=== PATIENT | male | born 1995 | race Caucasian/White ===

== ENCOUNTER 2019-06-23 13:01 | Observation (INO) | payer SELFPAY ==
[~2019-06-23 13:01] MED LIST: Iopamidol-370 76% 500 ML 1 ML ONE
[2019-06-23] MEDS ORDERED: Fentanyl 100 MCG/2 ML VIAL ONE (13:07)
--- NOTE | 2019-06-23 14:27 | RAD ---
2 VIEWS RIGHT HIP: Date: 06/23/2019 COMPARISON: None. HISTORY: Injury, trauma, pain. FINDINGS: There is abnormal widening of the pubic symphysis suggesting traumatic diastasis. No fracture or disl ocation is seen in the region of the right hip. IMPRESSION: Widening of the pubic symphysis consistent with traumatic diastasis. POS: [facility]
[2019-06-23 14:36] LABS: Hemoglobin 15.8 g/dL (14.0-18.0); Mean Corpuscular HGB CONC 36.6 g/dL (32.0-36.0); Mean Corpuscular Hemoglobin 31.5 pg (27.0-31.0); Mean Corpuscular Volume 86.1 fL (78.0-98.0); Mean Platelet Volume 7.7 fL (7.4-10.4); Platelet Count 237 thou/uL (130-400); RBC Distribution Width 11.2 % (11.5-14.5); Red Blood Cell (RBC) Count 5.01 mill/uL (4.70-6.10); White Blood Cell (WBC) Count 26.2 thou/uL (4.8-10.8)
--- NOTE | 2019-06-23 14:38 | CT ---
CT CHEST AND ABDOMEN AND PELVIS AND THORACIC SPINE AND LUMBAR SPINE: Date: 06/23/2019 COMPARISON: None. HISTORY: Trauma, pain, horse fell on top of patient. TECHNIQUE: Axial CT imaging at 5 mm intervals from the thoracic inlet through the pubic symphysis with IV contra st. Coronal and sagittal 3D reformatted imaging obtained. FINDINGS: There is no axillary, mediastinal, or hilar lymphadenopathy. Mild increased density is noted within t he anterior superior mediastinal fat suggesting residual thymic tissue. There is no pleural, pericardial, or mediastinal fluid. No pneumothorax. No endobronchial lesion. Extraspinal osseous structures of the chest appear grossly unremarkable. No free intraperitoneal air or fluid. The liver, gallbladder, spleen, pancreas, adrenal glands, and kidneys appear unremarkable. Limited assessment of the bowel demonstrates no evidence for bowel inflammatory change or obstruction . Appendix is visualized and is within normal limits. The vascular structures of the abdomen/pelvis a ppear patent. No abdominal or pelvic lymphadenopathy is noted. Osseous structures of the abdomen/pelvis demonstrate no widening of the sacroiliac joints. However, t here does appear to be mild widening of the pubic symphysis. There is a comminuted and mildly displac ed inferior pubic ramus fracture on the left. The inferior pubic ramus on the right appears unremarka ble. Neither hip appears dislocated. There is stranding of the fat inferior to the urinary bladder and there is small volume hemorrhage to the right of midline within the lower pelvis anteriorly, just inferior to the right acetabulum. The sternum and manubrium appear intact on the sagittal reformatted imaging. No acute fracture or evidence of dislocation is evident within the thoracic spine. No acute fracture or dislocation is seen involving the lumbar spine. Bilateral pars defects are noted at the L3 level with no associated anterolisthesis. IMPRESSION: Acute fracture of inferior pubic ramus on the left with traumatic mild widening of the pubic symphysi s and small volume associated hemorrhage within the right hemipelvis. Additional incidental findings as detailed above. Results called to Dr. Martinez at 1345 hours on 06/23/2019. CODE CR.
[2019-06-23] MEDS ORDERED: Ondansetron PF 4 MG/2 ML Vial ONE (14:53)
[2019-06-23] MEDS ORDERED: Morphine 4 MG/ML VIAL ONE (14:53)
[2019-06-23] MEDS ORDERED: Ketorolac Tromethamine 30 MG/ML VIAL ONE (14:53)
[2019-06-23 14:57] LABS: Band 24 % (5-11); Eosinophils 1 % (0-10); Lymphocytes 10 % (21-51); MDiff Complete? YES; Metamyelocyte 1 % (0-0); Monocytes 6 % (0-10); Neutrophil 56 % (42-75); Platelet Morphology Comment Appears Adequate; Polychromasia SLIGHT = 2-3 cells (100X) (0-2/hpf); Reactive Lymphocytes 2 % (0-10)
[2019-06-23 14:58] LABS: ALT (SGPT) 34 U/L (8-55); AST (SGOT) 29 U/L (5-34); Albumin 4.6 g/dL (3.5-5.0); Alkaline Phosphatase 64 U/L (40-110); Anion Gap 11 mmol/L (10-20); BUN (Urea Nitrogen) 17 mg/dL (8.9-20.6); Bilirubin, Total 0.6 mg/dL (0.2-1.2); Calc. Creatinine Clearance 0 mL/min (70-130); Calcium 9.6 mg/dL (7.8-10.44); Carbon Dioxide 23 mmol/L (22-29); Chloride 107 mmol/L (98-107); Estimated GFR-MDRD 81; Globulin 3.1 g/dL (2.4-3.5); Glucose 106 mg/dL (70-105); Potassium 3.4 mmol/L (3.5-5.1); Protein, Total 7.7 g/dL (6.0-8.3); Sodium 138 mmol/L (136-145)
[2019-06-23] MEDS ORDERED: Dextrose 50% Abboject 50 ML SYRINGE SLOW IVP PRN (15:40)
[2019-06-23] MEDS ORDERED: Ondansetron ODT 4 MG TAB PO PRN (15:40)
[2019-06-23] MEDS ORDERED: Ondansetron PF 4 MG/2 ML Vial IVP PRN (15:40)
[2019-06-23] MEDS ORDERED: Morphine 2 MG/ML SYRINGE SLOW IVP PRN (15:40)
[2019-06-23] MEDS ORDERED: Dextrose 5% in Water 1,000 ML IV PRN (15:40)
[2019-06-23] MEDS ORDERED: hydrALAZINE 20 MG/ML VIAL SLOW IVP PRN (15:40)
[2019-06-23] MEDS ORDERED: traMADol HCl 50 MG TAB PO PRN (15:43)
[2019-06-23] MEDS ORDERED: Cyclobenzaprine 10 MG TAB PO PRN (15:44)
[2019-06-23 15:58] LABS: CK (CPK) 315 U/L (30-200); Magnesium 1.5 mg/dL (1.6-2.6)
[2019-06-23] MEDS ORDERED: Acetaminophen 500 MG TAB PO SCH (16:00)
[2019-06-23] MEDS ORDERED: traMADol HCl 50 MG TAB PO SCH (16:00)
[2019-06-23 16:01] LABS: Phosphorus 1.1 mg/dL (2.3-4.7)
[2019-06-23] MEDS ORDERED: Potassium Phosphate 30 MMOL in Sodium Chloride 0.9% 500 ML IVPB SCH (17:00)
[2019-06-23] MEDS ORDERED: Magnesium 2 GM/50 ML 2 GM in Premix Bag 1 BAG IVPB SCH (17:15)
--- NOTE | 2019-06-23 17:20 | HP ---
This is Tere Pascal NP dictating a report for Nikki Tamayo MD. REQUESTING: Dr. Martinez. CONSULT: Orthopedic Surgery, Dr. Aviles. CHIEF COMPLAINT: Level 2 trauma activation, crushed by horse. HISTORY OF PRESENT ILLNESS: This is a 23-year-old gentleman who arrived to the emergency room via EMS after he was riding his horse, horse reared up, fell backwards, landing on top of him. The patient denied hitting his head or losing consciousness. The patient immediately reported pain to left hip. The patient was not able to ambulate after the injury. The patient's vital signs have been stable. The patient's pain has been controlled with morphine, Toradol, and fentanyl in the emergency room. Trauma Service was asked to admit the patient for evaluation and pain control for his left inferior pubic ramus fracture with widened pubic symphysis. The patient is currently awake, alert, in no distress at this time. The patient is currently eating a regular diet. The patient denies any recent illness, chest pain, shortness of breath, cough, fever, or chills. The patient states that he does not see a doctor regularly. REVIEW OF SYSTEMS: A 10-point review of systems is negative. ALLERGIES: NO KNOWN DRUG ALLERGIES. MEDICATIONS: Denies. PAST MEDICAL HISTORY: Denies. FAMILY HISTORY: Denies. SURGICAL HISTORY: 1. Cyst removal from the left side of face. 2. [place] teeth removal. SOCIAL HISTORY: The patient is a pipeline worker. The patient denies a history of smoking, denies illicit drug use, reports very occasional alcohol use. OBJECTIVE: VITAL SIGNS: Blood pressure 129/97, pulse 100, respirations 20, temperature 97.8, and SpO2 of 100% on room air. GENERAL: Well-appearing young male, pleasant, in no acute distress. HEENT: Head is atraumatic and normocephalic, midface stable, mucous membranes are moist, normal range of motion of neck, no posterior cervical tenderness. Trachea midline. PULMONARY: Equal chest rise and fall. No obvious chest deformity. Bilateral breath sounds clear. No wheezing, rales, or rhonchi. CARDIAC: Regular rate and regular rhythm. No murmurs. No pedal edema. ABDOMEN: Soft, nontender, and nondistended. Active bowel sounds. No peritoneal signs. EXTREMITIES: Moves all extremities. Tenderness to left hip. Distal pulses 2+. Sensation intact. NEUROLOGIC: GCS 15. No focal deficits. LABORATORY DATA: WBC 26.2, RBC 5.01, hemoglobin 15.8, hematocrit 43.1, and platelets 237. Sodium 138, potassium 3.4, chloride 107, carbon dioxide 23, BUN 17, creatinine 1.11, estimated GFR 81, glucose 106, and calcium 9.6. Phosphorus 1.1. Magnesium 1.5. Total bilirubin 0.6, AST 29, ALT 34, alkaline phosphatase 64. CK 315. Serum total protein 7.7 and albumin 4.6. DIAGNOSTIC DATA: Chest, abdomen, and pelvis CT: There is no axillary, mediastinal, or hilar lymphadenopathy. Mild increased density noted within the anterior posterior mediastinal fat, suggesting residual thymic tissue. No pleural, pericardial, or mediastinal fluid. No pneumothorax. No endobronchial lesion. Extra-spinal osseous structures of the chest appear grossly unremarkable. No free intraperitoneal air or fluid. No acute fracture evidence or dislocation of the thoracic spine. Sternum and manubrium appear intact. Bilateral pars defects are noted at L3 level with no associated anterolisthesis. Acute fracture of the inferior pubic ramus on the left with traumatic mild widening of the pubic symphysis and small volume of associated hemorrhage within the right hemipelvis. Hip x-ray, impression: Widening of the symphysis correction of the pubic symphysis consistent with traumatic diastasis. No fracture or dislocation is seen in the region of the right hip. IMPRESSION: 1. Status post crush by horse. 2. Left inferior pubic ramus fracture with traumatic mild widening of the pubic symphysis. 3. Small volume associated hemorrhage within the right hemipelvis. 4. Acute traumatic pain. 5. Hypokalemia. PLAN: Admit the patient to the surgical floor for observation and pain control. Regular diet as tolerated. We will correct electrolytes. Waiting on evaluation by Orthopedic Surgery, Dr. Aviles. The patient will be nonweightbearing until evaluation. Aggressive pulmonary toilet. SCDs for VTE prophylaxis at this time. The plan was discussed with the attending who agrees. Job ID: [id number]
[2019-06-23 17:29] VITALS: BMI 28.3
[2019-06-23] MEDS: traMADol HCl 50 MG TAB PO SCH (18:17)
[2019-06-23] MEDS: Acetaminophen 500 MG TAB PO SCH (18:17)
--- NOTE | 2019-06-23 19:11 | CON ---
DATE OF CONSULTATION: 06/23/2019 REASON FOR CONSULTATION: Pelvic fracture. CHIEF COMPLAINT: Pelvic pain and back pain. CONSULTING PHYSICIAN: Dr. Martinez, ER staff. HISTORY OF PRESENT ILLNESS: Mr. Mills is a pleasant 23-year-old male who presented to the emergency department after having a horse fall onto him. The patient was seen and evaluated in the emergency department. The patient states that he was riding a horse when the horse reared up, falling directly onto his back, and the horse on top of him. He had immediate pelvic and low back pain. He was transferred to the emergency department. In the emergency department, evaluation and imaging demonstrated a pubic symphysis widening and inferior pubic rami fracture. Orthopedics was consulted secondary to fracture. ALLERGIES: NONE. MEDICATIONS: None. PAST MEDICAL HISTORY: None. PAST SURGICAL HISTORY: None. SOCIAL HISTORY: Denies smoking. Drinks alcohol occasionally. Denies any illicit drug use. He currently works in [place], mainly driving a backhoe. FAMILY HISTORY: Noncontributory. REVIEW OF SYSTEMS: Complete 10-system review is negative with the exception of right hip pain and low back pain. PHYSICAL EXAMINATION: GENERAL: Alert and oriented x3, in no acute distress. HEENT: Nontraumatic and normocephalic. RESPIRATORY: Nonlabored. CARDIOVASCULAR: Regular rate. ABDOMEN: Soft, nondistended, and nontender. MUSCULOSKELETAL: Evaluation of the pelvis demonstrates no swelling, open wounds, lacerations, or abrasions. No ecchymosis noted. He is tender to palpation about the right hip region. Evaluation of the right lower extremity demonstrates no tenderness on palpation along the right knee, ankle, or foot. He has mild groin pain on log rolling of the right hip. He has some low back pain as well. He does have a small abrasion on the anterior tib-fib region, appears to be remote. Evaluation of the left lower extremity demonstrates no tenderness to palpation or pain on passive range of motion of left hip, knee, ankle, or foot. He has positive FHL/EHL/peroneal muscle activation of bilateral lower extremities. Evaluation of bilateral upper extremities demonstrates no tenderness to palpation or pain on passive range of motion of bilateral shoulders, elbows, wrists, or hands. Positive FPL/EPL/intrinsic muscle activation of bilateral upper extremities. NEUROVASCULAR: Sensation intact to light touch in L4 through S1 dermatomes in bilateral lower extremity and radial, ulnar, and median nerve distribution of bilateral upper extremities. IMAGING STUDIES: X-rays of the right hip demonstrates some mild widening of the pubic symphysis, less of approximately 1.[address] of the abdomen and pelvis demonstrates some hemorrhage around the right pelvis with inferior pubic rami fracture of the right inferior pubic ramus. There is mild widening of the pubic symphysis. No SI widening noted. ASSESSMENT AND PLAN: A 23-year-old male with an APC-1 pelvis fracture and minimal widening of the pubic symphysis. His widening is less than 2.5 cm. We will plan for conservative treatment without any surgical intervention at this point in time. We will admit him to the hospital for pain control and to evaluate for pelvic bleeding. If he is doing well tomorrow, then likely be discharged home. We will obtain a standing AP pelvis film to assess true stability of his pelvis tomorrow morning. We will see him in clinic in 2 weeks' time for repeat imaging. Job ID: [id number]
[2019-06-23] MEDS: Gabapentin 300 MG CAP PO SCH (21:02)
[2019-06-23] MEDS: Ibuprofen 600 MG TAB PO SCH (21:02)
--- NOTE | 2019-06-23 21:25 | PRG ---
DATE OF SERVICE: 06/23/2019 SUBJECTIVE: The patient was seen this evening during rounds. He was lying in bed and comfortable with no signs of acute distress. He reported his pain was better controlled. He is tolerating his diet. He is voiding without difficulty. Urine as reported as yellow. OBJECTIVE: VITAL SIGNS: Temperature 99.4, pulse 110, respirations 12, oxygen saturation 98% on room air, and blood pressure 122/72. GENERAL: Well-appearing young male, lying in bed supine with no signs of acute distress. PULMONARY: Equal chest rise and fall. No signs of acute respiratory distress. ASSESSMENT: 1. Status post crush by horse. 2. Left inferior pubic rami fracture with associated pelvic hematoma. 3. Acute hypokalemia, hypophosphatemia, and hypomagnesemia. PLAN: Continue current regular diet and pain management. Continue physical and occupational therapy. The patient has received electrolyte replacement. We will repeat blood work in the morning. Closely monitor vital signs as patient had a small volume hemorrhage after his pelvic fracture. If there is concern for bleeding, we will repeat blood work earlier than tomorrow morning. Per Dr. Aviles, the patient is to receive a repeat x-ray of the pelvis tomorrow morning. Job ID: [id number]
[2019-06-24] MEDS: Acetaminophen 500 MG TAB PO SCH ×3 (00:03→11:35)
[2019-06-24] MEDS: traMADol HCl 50 MG TAB PO SCH ×3 (00:03→11:35)
--- NOTE | 2019-06-24 04:22 | HP ---
ADDENDUM: This is an addendum to the H and P dictated by Tere Pascal, Trauma Nurse practitioner. For full details, please see her H and P, the details of which I have confirmed. CHIEF COMPLAINT: Pelvic and back pain. HISTORY OF PRESENT ILLNESS: Mr. Mills is a 23-year-old man who was riding his horse when the horse reared up and fell backwards onto him. He had immediate pain in his right hip and back area and was unable to stand or move. He was brought into the emergency room where he was found to have a left inferior pubic ramus fracture with a widened pubic symphysis. Due to inability to ambulate, he was admitted for pain control, although Orthopedics plans to manage this nonoperatively. He has not had any difficulty urinating and denies any hematuria. He has not noticed pain anywhere else, he is most comfortable with his knees rotated externally somewhat. He denies any loss of consciousness or other injuries. PAST MEDICAL HISTORY: None. PAST SURGICAL HISTORY: [place] teeth removal and removal of a BB-sized cyst from his face. ALLERGIES: NO KNOWN DRUG ALLERGIES. OUTPATIENT MEDICATIONS: Ten-system review of systems is negative except per HPI. SOCIAL HISTORY: The patient does not smoke or use illicit drugs. Drinks only rarely. He works in the [employer]. LABORATORY DATA: White count was elevated. Potassium, phosphorus, and magnesium were low. CK mildly elevated. IMAGING STUDIES: CT images were reviewed, and I agree with the written report. He has a left inferior pubic ramus fracture with widening of the pubic symphysis. In addition, the left SI joint posterior looks a little irregular to me, although this is not commented on the formal report. No other acute injuries were noted. PHYSICAL EXAMINATION: Complete physical examination was performed at the bedside. VITAL SIGNS: Normal except for mild tachycardia at 104. GENERAL: Reveals a healthy-appearing man. HEENT: He is normocephalic, atraumatic with no lymphadenopathy or thyroid nodules. NECK: Supple and nontender. HEART: His heart is regular in its rate and rhythm without murmurs, rubs, or gallops. LUNGS: Clear to auscultation bilaterally. ABDOMEN: Soft and nontender without hernias or masses. : No bruising or discoloration of the scrotum or penis. Urine in the bedside urinalysis jug is clear in color. Pelvis was not manipulated due to his known injury. EXTREMITIES: Warm and well perfused without edema. Normal pedal pulses. NEUROLOGIC: Intact. PSYCHIATRIC: Alert, oriented, and appropriate. ASSESSMENT: Pelvic fractures with acute pain due to trauma. He is being admitted, and pain medications and physical therapy have been ordered. His phosphorus and potassium are being replaced, and we will recheck this in the morning. Orthopedics has been consulted as well, but currently, there are no plans for operative intervention. Job ID: [id number]
[2019-06-24] MEDS: Ibuprofen 600 MG TAB PO SCH (05:03)
[2019-06-24 06:02] LABS: Anion Gap 10 mmol/L (10-20); BUN (Urea Nitrogen) 18 mg/dL (8.9-20.6); Calc. Creatinine Clearance 176 mL/min (70-130); Calcium 8.5 mg/dL (7.8-10.44); Carbon Dioxide 27 mmol/L (22-29); Chloride 106 mmol/L (98-107); Estimated GFR-MDRD 90; Glucose 104 mg/dL (70-105); Magnesium 2.1 mg/dL (1.6-2.6); Potassium 3.5 mmol/L (3.5-5.1); Sodium 139 mmol/L (136-145)
[2019-06-24 06:17] LABS: #Basophils 0.1 thou/uL (0.0-0.2); #Eosinphils 0.2 thou/uL (0.0-0.7); #Lymphocytes 2.3 thou/uL (1.20-3.40); #Neutrophils 8.7 thou/uL (1.40-6.50); %Basophils 0.4 % (0.0-1.0); %Eosinophils 1.3 % (0.0-10.0); %Lymphocytes 19.1 % (21.0-51.0); %Monocytes 8.4 % (0.0-10.0); %Neutrophils 70.8 % (42.0-75.0); Hemoglobin 13.4 g/dL (14.0-18.0); Mean Corpuscular HGB CONC 35.2 g/dL (32.0-36.0); Mean Corpuscular Hemoglobin 30.5 pg (27.0-31.0); Mean Corpuscular Volume 86.6 fL (78.0-98.0); Mean Platelet Volume 7.9 fL (7.4-10.4); Platelet Count 188 thou/uL (130-400); RBC Distribution Width 11.3 % (11.5-14.5); Red Blood Cell (RBC) Count 4.39 mill/uL (4.70-6.10); White Blood Cell (WBC) Count 12.2 thou/uL (4.8-10.8)
[2019-06-24] MEDS ORDERED: Polyethylene Glycol 3350 17 GM Packet PO SCH (09:00)
[2019-06-24] MEDS: Gabapentin 300 MG CAP PO SCH (09:06)
--- NOTE | 2019-06-24 10:27 | RAD ---
FRONTAL RADIOGRAPH PELVIS: Date: 06/24/2019 HISTORY: Pelvic fracture. FINDINGS: Mild widening of the pubic symphysis noted. There is a stable fracture involving the inferior pubic r amus on the left. Neither hip appears dislocated. IMPRESSION: Traumatic diastasis of the pubic symphysis with left inferior pubic ramus fracture. POS: [facility]
--- NOTE | 2019-06-24 10:49 | PRG ---
DATE OF SERVICE: 06/24/2019 SUBJECTIVE: The patient was seen and evaluated in the hospital bed. No acute events overnight. Complains of some pelvic pain and tailbone pain. No adverse events overnight. OBJECTIVE: VITAL SIGNS: Stable. The patient is afebrile. MUSCULOSKELETAL: Evaluation of bilateral lower extremities demonstrates no tenderness to palpation or pain on passive range of motion of bilateral feet, ankle, or knees. He has minor tenderness of the right groin region with log rolling of the right leg. Normal exam of left lower extremity. Secondary survey of bilateral upper extremities demonstrates no tenderness to palpation or pain on passive range of motion of bilateral shoulders, elbows, wrists, or hands. _Neurovascularly_ intact throughout. IMAGING: New AP pelvis standing reviewed this morning demonstrates stable mild widening of the pubic symphysis. Inferior pubic rami fracture without significant displacement on the left lower inferior pubic rami. ASSESSMENT/PLAN: A 23-year-old male with an APC-1 pelvis. Imaging demonstrates stability of his injury at this time. We will plan for discharge today. We will see him in clinic in approximately two weeks for repeat imaging of the pelvis. Job ID: [id number] [facility]
[2019-06-24 12:12] VITALS: BP 115/71; TEMP 98.9
--- NOTE | 2019-06-24 12:44 | DIS ---
DATE OF ADMISSION: 06/23/2019 DATE OF DISCHARGE: 06/24/2019 CONSULTS: Orthopedic Surgery, Dr. Aviles. PROCEDURES: 1. On 06/23/2019, chest, abdomen, and pelvis CT impression; acute fracture of inferior pubic ramus on the left with traumatic mild widening of pubic symphysis and small volume associated hemorrhage within the right hemipelvis. 2. Hip x-ray, impression; widening of the pubic symphysis consistent with traumatic diastasis. 3. On 06/24/2019, pelvis x-ray, impression; traumatic diastasis of the pubic symphysis with a left inferior pubic ramus fracture. PRIMARY DIAGNOSES: Crush injury by horse, left lower inferior pubic rami fracture, and widening of the pubic symphysis. DISCHARGE MEDICATIONS: 1. Acetaminophen 1000 mg p.o. q.6 hours. 2. Flexeril 10 mg p.o. 3 times a day p.r.n. muscle spasms, #30. 3. Gabapentin 300 mg p.o. 3 times a day as needed for pain, #60. 4. Ibuprofen 600 mg p.o. q.8 hours as needed for pain. 5. Tramadol 50 mg p.o. 1 to 2 tabs q.6 hours p.r.n. pain, #30. 6. The [employer] prescription monitoring program was accessed and the patient has no previous prescriptions. HISTORY OF PRESENT ILLNESS AND HOSPITAL COURSE: This is a 23-year-old male, who was riding a horse, horse reared up, fell backwards landing on top of him. The patient had no loss of consciousness and denies hitting his head. The patient was unable to ambulate after the accident. The patient arrived to the emergency room via ambulance for further evaluation. The patient was found to have a left inferior pubic rami fracture with widened pubic symphysis. The patient's vital signs were stable. The patient's pain was well controlled during his hospital stay. The patient was evaluated by Orthopedic Surgery and had a repeat pelvis x-ray before discharge. The patient was able to ambulate with moderate amount of pain with physical therapy using crutches. The patient was able to tolerate a regular diet and voiced no complaints or concerns. On the day of discharge, the patient was examined by the attending. The patient's vital signs were stable on the day of discharge and his exam was unremarkable including cardiopulmonary and GI exam. The patient was deemed stable for discharge home. DISPOSITION: Stable. DISCHARGE INSTRUCTIONS: 1. Location: Home. 2. Diet: Regular diet. 3. Activity: Orthopedic limitations, weightbearing as tolerated. 4. Followup: Follow up with Dr. Aviles in 2 weeks. No need to follow up with Trauma Services. Please call for any questions. Job ID: [id number]
== END 2019-06-24 13:50 | disposition home or self-care (01) ==
LOC: EDSEX 13:01 → ERS 13:01 → SURG A 14:34
PROVIDERS: ADMIT Surgery; ATTEND Surgery
DX: S32.592A Other specified fracture of left pubis, initial encounter for closed fracture (principal); S33.4XXA Traumatic rupture of symphysis pubis, initial encounter; S30.0XXA Contusion of lower back and pelvis, initial encounter; G89.11 Acute pain due to trauma; E87.6 Hypokalemia; E83.39 Other disorders of phosphorus metabolism; E83.42 Hypomagnesemia; V80.919A Animal-rider injured in unspecified transport accident, initial encounter; Y93.52 Activity, horseback riding
CPT/HCPCS: 36415; 71260; 72170; 74177; 80048; 80053; 82550; 83735; 84100; 85025; 94760; 96365; 96366; 96367; 96374; 96375; G0378; G0390; J1885; J2270; J2405; J3010; J3475; J7030; Q9967